=== PATIENT | female | born 1990 | race American Indian/Alaskan Native ===

== ENCOUNTER 2016-09-14 13:33 | Outpatient (CLI) | payer MEDICAID ==
[2016-09-14 15:46] VITALS: BP 110/60
== END 2016-09-14 15:30 | disposition home or self-care (01) ==
LOC: TRG 13:33 → LAB 13:33 → TRG 15:26
PROVIDERS: ATTEND Obstetrics & Gynecology
DX: O36.0130 Maternal care for anti-D [Rh] antibodies, third trimester, not applicable or unspecified (principal); Z3A.29 29 weeks gestation of pregnancy
CPT/HCPCS: 86850; 86900; 86901; 96372; J2790

== ENCOUNTER 2016-10-17 16:05 | Outpatient (CLI) | payer MEDICAID ==
[2016-10-17 16:22] VITALS: BP 122/61
[2016-10-17] MEDS ORDERED: LACTATED RINGERS 500 ML IV ONE (16:24)
[2016-10-17] MEDS ORDERED: TYLENOL PO ONE (17:26)
== END 2016-10-17 18:59 | disposition home or self-care (01) ==
LOC: TRG 16:05 → LD 16:06 → TRG 18:59
PROVIDERS: ATTEND Obstetrics & Gynecology
DX: O47.03 False labor before 37 completed weeks of gestation, third trimester (principal); Z3A.34 34 weeks gestation of pregnancy
CPT/HCPCS: 59025; J7120

== ENCOUNTER 2016-11-06 17:55 | Outpatient (CLI) | payer MEDICAID ==
[2016-11-06 18:07] VITALS: BP 114/56
[2016-11-06] MEDS ORDERED: VISTARIL PO ONE (18:38)
== END 2016-11-06 19:01 | disposition home or self-care (01) ==
LOC: TRG 17:55
PROVIDERS: ATTEND Obstetrics & Gynecology
CPT/HCPCS: Q0177

== ENCOUNTER 2016-11-14 03:26 | Inpatient (IN) | payer MEDICAID ==
[2016-11-14] MEDS ORDERED: MINERAL OIL PO PRN (05:02)
[2016-11-14] MEDS ORDERED: BRETHINE IVP PRN (05:02)
[2016-11-14] MEDS ORDERED: ePHEDrine SULFATE IV PRN ×2 (05:02→08:46)
[2016-11-14] MEDS ORDERED: POLYCILLIN/NS 2 GM/100 ML 2 GM/100 ML BAG IV ONE (05:02)
[2016-11-14] MEDS ORDERED: BRETHINE SUB-Q PRN (05:02)
[2016-11-14] MEDS ORDERED: XYLOCAINE 2% INFILTRATI ONE (05:02)
[2016-11-14] MEDS: LACTATED RINGERS 1,000 ML IV SCH ×2 (05:30→09:30)
[2016-11-14] MEDS ORDERED: SUBLIMAZE IV ONE (05:43)
[2016-11-14] MEDS ORDERED: PITOCin/NS 20 UNIT/1000ML DRIP 20 UNITS/1,000 ML BAG IV SCH (06:00)
[2016-11-14 06:03] LABS: Hematocrit 32.7 % (30.3-42.9); Hemoglobin 10.6 gm/dl (10.1-14.3); Mean Corpuscular HGB Conc 32 % (30-34); Mean Corpuscular Hemoglobin 27 pg (28-32); Mean Corpuscular Volume 83 fl (79-97); Platelet Count 256 K/mm3 (140-440); Red Blood Count 3.93 M/mm3 (3.65-5.03); Red Cell Distribution Width 15.3 % (13.2-15.2); White Blood Count 12.5 K/mm3 (4.5-11.0)
[2016-11-14 06:34] LABS: Urine Drugs of Abuse Note Disclamer
--- NOTE | 2016-11-14 07:33 | History and Physical Report ---
History of Present Illness Date of examination: 11/14/16 Date of admission: 11/14/16 05:03 Chief complaint: I'm having contractions History of present illness: 26 yo , now 38 weeks presents to labor and delivery with C/o contractions. care at [facility] since 13 weeks. 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 GBS + Past History Past Medical History: no pertinent history Past Surgical History: other (cyst removed off vocal cord) [employer] History: abnormal PAP smear, herpes, other (hpv) Family/Genetic History: none - Obstetrical History Expected Date of Delivery: 11/27/16 Actual Gestation: 38 Week(s) 1 Day(s) : 3 Para: 1 Hx # Term Pregnancies: 1 Spontaneous Abortions: 1 Number of Living Children: 1 Medications and Allergies Allergies Allergy/AdvReac Type Severity Reaction Status Date / Time No Known Allergies Allergy Verified 09/14/16 15:30 Home Medications Medication Instructions Recorded Confirmed Last Taken Type No Known Home Medications [No 10/17/16 10/17/16 Unknown History Reported Home Medications] Active Meds: Active Medications Lactated Ringer's (Lactated Ringers) 1,000 mls @ 125 mls/hr IV DIRECT TOBY Last Admin: 11/14/16 05:30 Dose: 125 mls/hr Oxytocin/Sodium Chloride (Pitocin/Ns 20 Unit/1000ml Drip) 20 units in 1,000 mls @ 125 mls/hr IV DIRECT TOBY Ampicillin Sodium (Polycillin/Ns 1 Gm/50 Ml) 1 gm in 50 mls @ 100 mls/hr IV Q4HR TOBY PRN Reason: Protocol Mineral Oil (Mineral Oil) 30 ml PO QHS PRN PRN Reason: Constipation Review of Systems All systems: negative - Vital Signs Vital signs: Vital Signs Pulse BP 95 H 126/71 11/14/16 03:30 11/14/16 03:30 Temp Pulse Resp BP Pulse Ox 98.0 F 91 H 18 160/75 100 11/14/16 03:38 11/14/16 07:03 11/14/16 03:38 11/14/16 07:03 11/14/16 06:58 - Physical Exam Cardiovascular: Regular rate Lungs: Positive: Clear to auscultation Abdomen: Positive: soft Vulva: both: normal Vagina: Positive: normal moisture Uterus: Positive: enlarged Anus/Rectum: Positive: normal perianal skin Extremities: Positive: normal Deep Tendon Reflex Grade: Normal +2 - Obstetrical FHR: category 1 Cervical Dilatation: 8 (arom no fluid) Cervical Effacement Percentage: 100 station: +1 Uterine Contraction Pattern: Regular Uterine Contraction Intensity: Moderate Results Result Diagrams: 11/14/16 05:02 Abnormal lab results 11/14/16 Range/Units 05:02 WBC 12.5 H (4.5-11.0) K/mm3 MCH 27 L (28-32) pg RDW 15.3 H (13.2-15.2) % All other labs normal. Assessment and Plan A: Active labor at 38 weeks P: Expect
[2016-11-14] MEDS ORDERED: PITOCin/NS 30 UNIT/500ML 30 UNITS/500 ML BAG IV SCH (08:00)
[2016-11-14] MEDS ORDERED: ePHEDrine SULFATE ONE (08:12)
--- NOTE | 2016-11-14 08:44 | Anesthesia Consultation ---
Anesthesia Consult and Med Hx Date of service: 11/14/16 - Airway Anesthetic Teeth Evaluation: Good ROM Head & Neck: Adequate Mental/Hyoid Distance: Adequate Mallampati Class: Class II Intubation Access Assessment: Probably Good - Pre-Operative Health Status ASA Pre-Surgery Classification: ASA2 Proposed Anesthetic Plan: Epidural, Spinal - Pulmonary Hx Smoking: Yes (10 years/pack history, quit 2015) Hx Asthma: No - Cardiovascular System Hx Hypertension: No - Central Nervous System Hx Seizures: No Hx Psychiatric Problems: No - Endocrine Hx Renal Disease: No Hx Hypothyroidism: No Hx Hyperthyroidism: No - Hematic Hx Anemia: No Hx Sickle Cell Disease: No - Other Systems Hx Alcohol Use: No
[2016-11-14] MEDS ORDERED: NARCAN 2 MG/2 ML IV PRN (08:46)
[2016-11-14] MEDS ORDERED: fentaNYL-BUPIV 2 MCG/ML-0.125% 200 MCG/100 ML BAG EPIDURAL SCH (09:00)
[2016-11-14] MEDS ORDERED: POLYCILLIN/NS 1 GM/50 ML 1 GM/50 ML BAG IV SCH (09:00)
--- NOTE | 2016-11-14 09:44 | Ultrasound Report ---
BIOPHYSICAL PROFILE: 0 - breathing movements 0 - movements 0 - posture and tone 0 - Qualitative amniotic fluid volume 0 - TOTAL SCORE OF POSSIBLE 8
--- NOTE | 2016-11-14 10:27 | Procedure Note ---
OB Delivery Note - Delivery Date of Delivery: 11/14/16 Surgeon: RADHA SHAW - Vaginal Delivery presentation: vertex Delivery position: OA Intrapartum events: none Delivery induction: none Delivery augmentation: rupture of membranes, pitocin Delivery monitor: external FHT, external uterine Route of delivery: Delivery placenta: spontaneous Delivery cord: 3 umbilical vessels Episiotomy: none Delivery laceration: none Anesthesia: epidural Delivery comments: of a viable male 6# 14 oz on November 14, 2016 @ 1011 over intact perineum. Placenta delivered 3VCI. FF @ U. Mother and baby doing well. - Infant A at 1 minute: 8 at 5 minutes: 9 Gender: Male (6-14)
[2016-11-14] MEDS ORDERED: PHENERGAN PO PRN (10:28)
[2016-11-14] MEDS ORDERED: BENADRYL PO PRN (10:28)
[2016-11-14] MEDS ORDERED: MILK OF MAGNESIA PO PRN (10:28)
[2016-11-14] MEDS ORDERED: DULCOLAX PR PRN (10:28)
[2016-11-14] MEDS ORDERED: LANSINOH TP PRN (10:28)
[2016-11-14] MEDS ORDERED: TYLENOL PO PRN (10:28)
[2016-11-14] MEDS ORDERED: SODIUM CHLORIDE FLUSH SYRINGE 10 ML IV NR (11:00)
[2016-11-14] MEDS: MOTRIN PO SCH ×2 (12:43→18:34)
[2016-11-14] MEDS: NORCO 5/325 PO PRN ×2 (15:41→21:17)
[2016-11-15 00:32] LABS: Hematocrit 29.5 % (30.3-42.9); Hemoglobin 9.7 gm/dl (10.1-14.3)
[2016-11-15] MEDS: NORCO 5/325 PO PRN ×3 (05:04→21:59)
[2016-11-15] MEDS: MOTRIN PO SCH ×3 (05:25→21:59)
[2016-11-15] MEDS ORDERED: M-M-R II VACCINE SUB-Q ONE (06:00)
--- NOTE | 2016-11-15 09:17 | Progress Note ---
Assessment and Plan A: PPD #1 stable P: Discharge home in am Subjective - Subjective Date of service: 11/15/16 Principal diagnosis: Interval history: 26 yo , now 38 weeks presents to labor and delivery with C/o contractions. care at [facility] since 13 weeks. 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 GBS + Patient reports: appetite normal [place]: doing well Objective - Vital Signs Latest vital signs: Vital Signs Temp Pulse Pulse Resp BP BP BP 11/15/16 08:12 98.2 F 81 18 130/74 11/15/16 05:04 16 11/15/16 00:35 97.8 F 91 H 20 145/89 11/14/16 21:17 18 11/14/16 18:34 18 11/14/16 16:56 99.2 F 90 18 116/56 11/14/16 15:41 18 11/14/16 12:43 18 11/14/16 12:00 99.0 F 98 H 18 127/79 11/14/16 11:15 99 H 112/60 11/14/16 11:05 97 H 116/59 11/14/16 10:50 104 H 120/59 11/14/16 10:46 97.5 F L 116/70 11/14/16 10:35 97 H 118/73 11/14/16 10:20 100 H 116/70 11/14/16 09:56 91 H 11/14/16 09:51 91 H 11/14/16 09:46 75 11/14/16 09:41 83 11/14/16 09:36 87 11/14/16 09:31 82 11/14/16 09:26 95 H 11/14/16 09:21 91 H 11/14/16 09:16 95 H Pulse Ox 11/15/16 08:12 11/15/16 05:04 11/15/16 00:35 11/14/16 21:17 11/14/16 18:34 11/14/16 16:56 11/14/16 15:41 11/14/16 12:43 11/14/16 12:00 11/14/16 11:15 11/14/16 11:05 11/14/16 10:50 11/14/16 10:46 11/14/16 10:35 11/14/16 10:20 11/14/16 09:56 100 11/14/16 09:51 100 11/14/16 09:46 99 11/14/16 09:41 100 11/14/16 09:36 99 11/14/16 09:31 100 11/14/16 09:26 100 11/14/16 09:21 100 11/14/16 09:16 100 Intake and Output 11/14/16 11/15/16 11/15/16 22:59 06:59 14:59 Intake Total 720 360 Output Total 600 Balance 120 360 Intake: Oral 480 360 Intake, Free Water 240 Output: Urine 600 Void 600 Other: Total, Intake Amount 240 120 Total, Output Amount 600 # Voids Void 1 1 # Bowel Movements 1 - Exam Breasts: Present: deferred, mass Lungs: Present: Clear to auscultation Vulva: both: normal Uterus: Present: fundal height below umbilicus Extremities: Present: normal Deep Tendon Reflex Grade: Normal +2 - Labs Labs: Abnormal lab results 11/15/16 Range/Units 00:04 Hgb 9.7 L (10.1-14.3) gm/dl Hct 29.5 L (30.3-42.9) %
--- NOTE | 2016-11-15 09:20 | Discharge Summary ---
Providers - Providers Date of Admission: 11/14/16 05:03 Date of discharge: 11/16/16 Attending physician: RUBI GALLARDO MD 11/14/16 10:44 Consult to Case Management [CONS] Stat Services Needed at Discharge: Other Notified:: YES Phone number called:: [phone] Additional Physician Instructions: UDS + FOR COCAINE Primary care physician: RUBI GALLAROD MD Hospitalization Reason for admission: active labor Delivery: Episiotomy: none Laceration: none Other procedures: none complications: none Discharge diagnosis: IUP at term delivered baby: male Condition at discharge: Good Disposition: DISCHARGED TO HOME OR SELFCARE Plan - Provider Discharge Summary Activity: routine, no sex for 6 weeks, no strenuous exercise Diet: routine Instructions: routine Additional instructions: [] Smoking cessation referral if applicable(refer to patient education folder for contact #) [] Refer to [facility]'s [facility] Booklet Call your doctor immediately for: * Fever > 100.5 * Heavy vaginal bleeding ( >1 pad per hour) * Severe persistent headache * Shortness of breath * Reddened, hot, painful area to leg or breast * Drainage or odor from incision. * Keep incision clean and dry at all times and follow doctor's instructions regarding bathing/showering - Follow up plan Follow up: [facility] [Provider Group] - 6 Weeks
[2016-11-16] MEDS: MOTRIN PO SCH (06:01)
[2016-11-16] MEDS: NORCO 5/325 PO PRN (11:21)
[2016-11-16] MEDS ORDERED: M-M-R II VACCINE SUB-Q ONE (12:00)
[2016-11-16 12:36] VITALS: BP 122/76
== END 2016-11-16 14:50 | disposition home or self-care (01) | DRG 774 ==
LOC: TRG 03:26 → LD 05:03 → OB 12:06
PROVIDERS: ADMIT Obstetrics & Gynecology; ATTEND Obstetrics & Gynecology
PROC: 00HU33Z Insertion of Infusion Device into Spinal Canal, Percutaneous Approach (ICD-10-PCS; principal; 2016-11-14)
PROC: 3E0S3CZ (ICD-10-PCS; principal; 2016-11-14)
PROC: 10E0XZZ Delivery of Products of Conception, External Approach (ICD-10-PCS; principal; 2016-11-14)
PROC: 3E0334Z Introduction of Serum, Toxoid and Vaccine into Peripheral Vein, Percutaneous Approach (ICD-10-PCS; 2016-11-15)
PROC: 10907ZC Drainage of Amniotic Fluid, Therapeutic from Products of Conception, Via Natural or Artificial Opening (ICD-10-PCS; 2016-11-15)
DX: O99.824 Streptococcus B carrier state complicating childbirth (principal); O98.32 Other infections with a predominantly sexual mode of transmission complicating childbirth; Z3A.38 38 weeks gestation of pregnancy; Z37.0 Single live birth; A60.09 Herpesviral infection of other urogenital tract; Z87.891 Personal history of nicotine dependence; Z79.899 Other long term (current) drug therapy
CPT/HCPCS: 36415; 76819; 80307; 85014; 85018; 85027; 85460; 85461; 86850; 86900; 86901; J0290; J2590; J2790; J3010; J7120

== ENCOUNTER 2021-01-04 19:34 | Emergency (ER) | payer MEDICAID ==
[2021-01-04 23:10] VITALS: BP 112/82
--- NOTE | 2021-01-05 05:46 | Event Note ---
ED Screening Note Date of service: 01/05/21 Time: 05:44 ED Screening Note: Patient is a 30-year-old -Japanese female with a history of schizophrenia, anxiety and depression as well as bipolar disorder presents to the ED with complaint of persistent auditory and visual hallucinations persi stently for the last 2 weeks, worse in the last 2 days. Patient also states that occasionally she feels suicidal but currently denies the same. Patient also complains of dysuria, urinary frequency and urgency, vaginal discharge and states that she would like to be evaluated by mental health because of her worsening hallucination conditions. Patient denies fever, chills, nausea, vomiting, dizziness, syncope, head or neck injuries, chest pain or shortness of breath and abdominal pain This initial assessment/diagnostic orders/clinical plan/treatment(s) is/are subject to change based on patients health status, clinical progression and re- assessment by fellow clinical providers in the ED. Further treatment and workup at subsequent clinical providers discretion. Patient/guardian urged not to elope from the ED as their condition may be serious if not clinically assessed and managed. Initial orders include: CBC, CMP, UA, urine hCG, UDS, blood alcohol, acetaminophen, salicylate, TSH
[2021-01-05 06:13] LABS: Bacteria,Urine 1+ /HPF (Negative); Bilirubin,Urine NEG (Negative); Blood,Urine NEG (Negative); Color,Urine Yellow (Yellow); Mucus,Urine 3+ /HPF
[2021-01-05 06:17] LABS: HCG Qualitative,Urine Negative (Negative)
[2021-01-05 06:21] LABS: Basophils % (Auto) 0.5 % (0.0-1.8); Eosinophils # (Auto) 0.3 K/mm3 (0.0-0.4); Eosinophils % (Auto) 3.5 % (0.0-4.3); Hematocrit 37.1 % (30.3-42.9); Hemoglobin 12.2 gm/dl (10.1-14.3); Lymphocytes # (Auto) 2.5 K/mm3 (1.2-5.4); Lymphocytes % (Auto) 26.7 % (13.4-35.0); Mean Corpuscular HGB Conc 33 % (30-34); Mean Corpuscular Volume 88 fl (79-97); Monocytes # (Auto) 0.7 K/mm3 (0.0-0.8); Monocytes % (Auto) 7.1 % (0.0-7.3); Platelet Count 305 K/mm3 (140-440); Red Blood Count 4.22 M/mm3 (3.65-5.03)
[2021-01-05 06:22] LABS: Amphetamine Screen,Urine PRESUMPTIVE POSITIVE; Benzodiazepines Screen,Urine PRESUMPTIVE NEGATIVE; Cannabinoid Screen,Urine PRESUMPTIVE POSITIVE; Cocaine Screen,Urine PRESUMPTIVE POSITIVE; Methadone Screen,Urine PRESUMPTIVE NEGATIVE; Opiate Screen,Urine PRESUMPTIVE NEGATIVE
[2021-01-05 06:41] LABS: Alanine Aminotransferase 15 units/L (7-56); Albumin 4.1 g/dL (3.9-5); Blood Urea Nitrogen 14 mg/dL (7-17); Hemolysis Index 6
[2021-01-05 06:42] LABS: BUN/Creatinine Ratio 23
--- NOTE | 2021-01-05 07:01 | Emergency Department Report ---
<MAYUR WASHINGTON - Last Filed: 01/05/21 06:56> ED Medical Clearance HPI - General Chief complaint: Urogenital-Female Stated complaint: MH EVAL/HEARING VOICES Source: patient, EMS Mode of arrival: Stretcher - History of Present Illness Initial comments: Patient is a 30-year-old -Marshallese female with a history of schizophrenia, anxiety and depression as well as bipolar disorder presents to the ED with complaint of persistent auditory and visual hallucinations persistently for the last 2 weeks, worse in the last 2 days. Patient also states that occasionally she feels suicidal but currently denies the same. Patient also complains of dysuria, urinary frequency and urgency, vaginal discharge and states that she would like to be evaluated by mental health because of her worsening hallucination conditions. Patient denies fever, chills, nausea, vomiting, dizziness, syncope, head or neck injuries, chest pain or shortness of breath and abdominal pain. MD Complaint: medical clearance request -: Sudden, week(s) (1) Reason for Medical Clearance: psychiatric condition Place: home Alledged Intoxication: No Compliant with Home Medications: No Traumatic Symptoms: denies traumatic injury Associated Symptoms: denies: chest pain, shortness of breath, palpitations, diaphoresis, denies other symptoms, confusion, cough, fever/chills, headaches, anorexia, malaise, nausea/vomiting, seizure, syncope, weakness Treatments Prior to Arrival: none Home medications: Home Medications Medication Instructions Recorded Confirmed Last Taken Acetaminophen/Diphenhydramine 2 each PO QHS 11/14/16 11/14/16 11/13/16 [Tylenol Pm Ex-Strength Caplet] Vit No.130/Iron/Folic 1 each PO QDAY 11/14/16 11/14/16 11/13/16 [ Tablet] 1 tab Previous Rx's Medication Instructions Recorded Last Taken Type Sulfamethoxazole/Trimethoprim 1 tab PO BID #14 01/05/21 Unknown Rx [Bactrim DS TAB] metroNIDAZOLE [Flagyl] 500 mg PO Q12HR #14 tab 01/05/21 Unknown Rx Allergies/Adverse reactions: Allergies Allergy/AdvReac Type Severity Reaction Status Date / Time No Known Allergies Allergy Verified 09/14/16 15:30 ED Review of Systems Constitutional: denies: chills, fever Eyes: denies: eye pain, eye discharge, vision change ENT: denies: ear pain, throat pain Respiratory: denies: cough, shortness of breath, wheezing Cardiovascular: denies: chest pain, palpitations Endocrine: no symptoms reported Gastrointestinal: denies: abdominal pain, nausea, vomiting, diarrhea Genitourinary: urgency, dysuria, frequency, discharge Musculoskeletal: denies: back pain, joint swelling, arthralgia Skin: denies: rash, lesions Neurological: denies: headache, weakness, paresthesias Psychiatric: anxiety, depression, auditory hallucinations, visual hallucinations. denies: homicidal thoughts, suicidal thoughts Hematological/Lymphatic: denies: easy bleeding, easy bruising ED Past Medical Hx - Past Medical History Hx Hypertension: No Hx Diabetes: No Hx Deep Vein Thrombosis: No Hx Renal Disease: No Hx Sickle Cell Disease: No Hx Seizures: No Hx Psychiatric Treatment: Yes (Anxiety, depression, schizophrenia, bipolar disorder) Hx Asthma: No Hx HIV: No - Social History Smoking Status: Never Smoker Substance Use Type: None - Medications Home Medications: Home Medications Medication Instructions Recorded Confirmed Last Taken Type Acetaminophen/Diphenhydramine 2 each PO QHS 11/14/16 11/14/16 11/13/16 History [Tylenol Pm Ex-Strength Caplet] Vit No.130/Iron/Folic 1 each PO QDAY 11/14/16 11/14/16 11/13/16 History [ Tablet] 1 tab Sulfamethoxazole/Trimethoprim 1 tab PO BID #14 01/05/21 Unknown Rx [Bactrim DS TAB] metroNIDAZOLE [Flagyl] 500 mg PO Q12HR #14 tab 01/05/21 Unknown Rx ED Physical Exam - General Limitations: No Limitations General appearance: alert, in no apparent distress, anxious - Head Head exam: Present: atraumatic, normocephalic, normal inspection - Eye Eye exam: Present: normal appearance, PERRL, EOMI Pupils: Present: normal accommodation - ENT ENT exam: Present: normal exam, normal orophraynx, mucous membranes moist, TM's normal bilaterally, normal external ear exam - Neck Neck exam: Present: normal inspection, full ROM - Respiratory Respiratory exam: Present: normal lung sounds bilaterally. Absent: respiratory distress, wheezes, rales, rhonchi, chest wall tenderness, accessory muscle use, decreased breath sounds, prolonged expiratory - Cardiovascular Cardiovascular Exam: Present: normal rhythm, tachycardia, normal heart sounds. Absent: systolic murmur, diastolic murmur, rubs, gallop - GI/Abdominal GI/Abdominal exam: Present: soft, normal bowel sounds. Absent: tenderness, guarding, rebound, hyperactive bowel sounds, hypoactive bowel sounds, organomegaly, mass - Bi-manual exam: Present: other (Pelvic exam deferred at this time) - Extremities Exam Extremities exam: Present: normal inspection, full ROM, normal capillary refill - Back Exam Back exam: Present: normal inspection, full ROM. Absent: tenderness, CVA tenderness (R), muscle spasm, paraspinal tenderness, vertebral tenderness - Neurological Exam Neurological exam: Present: alert, oriented X3, CN II-XII intact, normal gait, reflexes normal - Psychiatric Psychiatric exam: Present: normal mood, depressed, anxious, flat affect. Absent: homicidal ideation, suicidal ideation - Skin Skin exam: Present: warm, dry, intact, normal color. Absent: rash ED Medical Decision Making - Lab Data Result diagrams: 01/05/21 05:50 01/05/21 05:50 - Medical Decision Making This is a 30-year-old -Marshallese female with a history of schizophrenia, anxiety and depression as well as bipolar disorder presents to the ED with complaint of persistent auditory and visual hallucinations persistently for the last 2 weeks, worse in the last 2 days. Patient also states that occasionally she feels suicidal but currently denies the same. Patient also complains of dysuria, urinary frequency and urgency, vaginal discharge and states that she would like to be evaluated by mental health because of her worsening hallucination conditions. In the ED, patient is alert and oriented x3 and is not in any distress, anxious and with flat affect. Lab test results were reviewed and showed urinary tract infection in urinalysis, urine drug screen was positive for amphetamines, cocaine and and cannabis. The rest of the lab test results are nonactionable. Psychiatric consult was placed for the patient in the ED. Patient care was transferred to Ms. Padmini Gutierrez PA-C at shift change. She shall reevaluate the patient after psychiatric consult and disposition the patient accordingly. - Differential Diagnosis Bipolar disorder, anxiety and depression, UTI; BV; hallucination ED Disposition Clinical Impression: Acute urinary tract infection, Anxiety associated with depression, Polysubstance abuse, Bacterial vaginosis Disposition: - TO HOME OR SELFCARE Is pt being admited?: No Does the pt Need Aspirin: No Condition: Stable Instructions: Generalized Anxiety Disorder, Adult, Substance Use Disorder and Mental Illness, Substance Use Disorder, Urinary Tract Infection, Adult, [id number], Bacterial Vaginosis, [id number], Bacterial Vaginosis (ED) Additional Instructions: Lab test results were reviewed and are all nonactionable except for urinalysis that showed significant urinary tract infection and suspected bacterial vaginosis. Your urine drug screen also showed significant illegal drugs including cocaine, amphetamines and marijuana. Professional and Agency Contacts To help Resolve Crises(03/01) [place] Crisis Line: Suicide Prevention Line: Crisis Text Line: Text START to 103838 Emergency: 911 Outpatient COMMUNITY Behavioral Health Resources: [facility]: [facility] [address] [place], [place] [address] [facility] [address] [place] [address] [facility] - [address] [place] [address] Tuesday thru Tuesday - 8am - 5pm [facility] Address: [address] [place] [address] [facility]: [facility] Address: [address] [place] [address] Tuesday thru Tuesday- 7am-2pm [facility] Address: [address] [place] [address] Tuesday thru Tuesday: 8:30AM-5PM OUTPATIENT MENTAL HEALTH RESOURCES [facility], [address] [place] [address] DEMETRIO Arzate MD: [address] [place], [place] [id number] [facility]: [address] [place], [place] [id number] [employer] [address] [place], [place] [id number] [phone] [facility]: [address] [facility] [address] [place] [address] [phone] [facility]: [address] [place] [id number] [facility]: [address] [place], [place] Hermilo Thomas MD: [address] [facility] [address] [facility]: [address] [facility] [place] [address] [phone] [place] CRISIS AND ACCESS LINE: * Prescriptions: Sulfamethoxazole/Trimethoprim [Bactrim DS TAB] 1 tab PO BID #14 metroNIDAZOLE [Flagyl] 500 mg PO Q12HR #14 tab Referrals: PRIMARY CARE, [Primary Care Provider] - 3-5 Days Forms: STI Treatment and Prevention Time of Disposition: 07:05 Print Language: SYRIAC <PADMINI GUTIERREZ - Last Filed: 01/05/21 13:21> ED Review of Systems ROS: Stated complaint: MH EVAL/HEARING VOICES Other details as noted in HPI ED Course Vital Signs 01/04/21 23:04 Temperature 98.3 F Pulse Rate 101 H Respiratory 18 Rate Blood Pressure 112/82 O2 Sat by Pulse 96 Oximetry ED Medical Decision Making - Lab Data Result diagrams: 01/05/21 05:50 01/05/21 05:50 - Medical Decision Making 1318: Patient was evaluated by psych. She does not meet criteria for inpatient treatment and was cleared to be discharged. Patient currently resting comfortably. She has no complaints currently. She is not toxic or ill- appearing and she does not appear to be in any acute severe distress. She is mentally stable and neurologically intact with a normal gait in the ER. Patient was written for doxycycline for her UTI but she states she is allergic to it and so she will be discharged home on Bactrim. Patient was stable at time of discharge.
--- NOTE | 2021-01-05 11:34 | Consultation ---
History of Present Illness - Reason for Consult Consult date: 01/05/21 Reason for consult: Hallucinations - History of Present Psychiatric Illness Per ED Note: Patient is a 30-year-old -Ira[place] female with a history of schizophrenia, anxiety and depression as well as bipolar disorder presents to the ED with complaint of persistent auditory and visual hallucinations persistently for the last 2 weeks, worse in the last 2 days. Patient also states that occasionally she feels suicidal but currently denies the same. Jennifer ent also complains of dysuria, urinary frequency and urgency, vaginal discharge and states that she would like to be evaluated by mental health because of her worsening hallucination conditions. Patient denies fever, chills, nausea, vomiting, dizziness, syncope, head or neck injuries, chest pain or shortness of breath and abdominal pain Viola Bond is a 30 year old female with a history of Depression, Schizophrenia, Bipolar and Anxiety who presents to the ED with auditory/visual hallucinations. In my interview with the patient, she reports having worsening depression and auditory/visual hallucinations since the last two weeks. She reports smoking marijuana yesterday that intensified her hallucinations "that scared me, I was seeing demons." The patient states she was prescribed Zoloft and Remeron and has been compliant. The patient denies any current suicidal/homicidal ideation. Diagnoses: Depression, Schizophrenia and Anxiety Suicide attempts or Self-harm behavior: Denies Prior psychiatric hospitalizations: Yes Substance Abuse history: Marijuana Previous psychiatric medications tried: Zoloft, Remeron Outpatient treatment: unknown PAST MEDICAL HISTORY: unknown Family Psychiatric History: None reported or documented SOCIAL HISTORY Marital Status: Single Living Arrangements: Lives with mother Employment Status: unemployed Access to guns/weapons: Denies Education: 12th grade History of Abuse: none reported Legal History: none reported REVIEW OF SYSTEMS Constitutional: Negative for weight loss ENT: Negative for stridor Respiratory: Negative for cough or hemoptysis All other systems reviewed and are negative MENTAL STATUS EXAMINATION General Appearance and Behavior: Age appropriate, good hygiene, wearing appropriate clothes, sleeping, cooperative Cooperation: Participating/engaged Psychomotor Behavior: Normal Mood: OK Affect and affective range: congruent with mood Thought Process: Self directed Thought Content: Not SI Speech: Normal volume Suicidal Ideation: Denies Homicidal Ideation: Denies Hallucinations: Auditory Delusions: None elicited Impulse Control: impaired Insight and Judgment: Limited insight and judgment, Memory: Normal Attention: Normal Orientation: Alert, oriented Assessment and Plan (1)Schizophrenia F20.9 Current Visit: Yes Status: Acute Treatment Plan The patient to comply with previously prescribed medications Risks, benefits and alternatives of medications discussed with the patient, questions answered and consent obtained from patient. PSYCHOTHERAPY: Supportive psychotherapy provided MEDICAL: Per primary team DELIRIUM PRECAUTIONS: Please re-orient patient frequently, keep lights on during the day, and minimize benzodiazepines and opiates as these medications could worsen patient's confusion. 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 FOLLOW-UP: Will sign off. The patient knows to follow up with out patient psychiatry. Thank you for the consult. Please contact with any questions and/or concerns. Medications and Allergies Medications and Allergies Allergies Allergy/AdvReac Type Severity Reaction Status Date / Time No Known Allergies Allergy Verified 09/14/16 15:30 Home Medications Medication Instructions Recorded Confirmed Last Taken Type Acetaminophen/Diphenhydramine 2 each PO QHS 11/14/16 11/14/16 11/13/16 History [Tylenol Pm Ex-Strength Caplet] Vit No.130/Iron/Folic 1 each PO QDAY 11/14/16 11/14/16 11/13/16 History [ Tablet] 1 tab Sulfamethoxazole/Trimethoprim 1 tab PO BID 11/14/16 11/14/16 11/13/16 History [Bactrim DS TAB] 1 tab Doxycycline Hyclate 100 mg PO Q12H #28 tablet. 01/05/21 Unknown Rx metroNIDAZOLE [Flagyl] 500 mg PO Q12HR #14 tab 01/05/21 Unknown Rx Mental Status Exam - Vital signs Last Vital Signs Temp 98.3 F 01/04/21 23:04 Pulse 101 H 01/04/21 23:04 Resp 18 01/04/21 23:04 BP 112/82 01/04/21 23:04 Pulse Ox 96 01/04/21 23:04 Results Result Diagrams: 01/05/21 05:50 01/05/21 05:50 Abnormal lab results 01/05/21 01/05/21 01/05/21 Range/Units 05:46 05:50 05:50 RDW 16.0 H (13.2-15.2) % Glucose 115 H (65-100) mg/dL Ur Specific [employer] 1.039 H (1.003-1.030) U Epithel Cells (Auto) 16.0 H (0-13.0) /HPF Salicylates (2.8-20.0) mg/dL Acetaminophen (10.0-30.0) ug/mL 01/05/21 01/05/21 Range/Units 05:50 05:50 RDW (13.2-15.2) % Glucose (65-100) mg/dL Ur Specific [employer] (1.003-1.030) U Epithel Cells (Auto) (0-13.0) /HPF Salicylates < 0.3 L (2.8-20.0) mg/dL Acetaminophen 5.0 L (10.0-30.0) ug/mL All other labs normal.
== END 2021-01-05 13:23 | disposition home or self-care (01) ==
LOC: ED 19:34
DX: F20.9 Schizophrenia, unspecified (principal); F41.8 Other specified anxiety disorders; N39.0 Urinary tract infection, site not specified; F19.10 Other psychoactive substance abuse, uncomplicated; N76.0 Acute vaginitis; F31.9 Bipolar disorder, unspecified
CPT/HCPCS: 36415; 80053; 80307; 80320; 81001; 81025; 84443; 84703; 85025; 99284; G0480

== ENCOUNTER 2021-04-27 04:15 | Emergency (ER) | payer MEDICAID ==
[2021-04-27 04:25] VITALS: BP 163/85
--- NOTE | 2021-04-27 04:29 | Event Note ---
Date: 04/27/21 EMS documentation not available at time of chart dictation Verbal report received from emergency medical services. Patient is a 30-year-old female with a history of psychiatric disease and body mass index of 35.7, who presents to the ER today with complaint of epigastric pain, and chest tightness. The patient denies travel, surgery, immobilization DVT/PE risk factors. The patient is not sure if she is . EKG showed a sinus tachycardia. Obtain appropriate laboratory studies, EKG, x-ray the chest, detailed history and physical to follow. Vital Signs 04/27/21 04/27/21 04:24 04:34 Temperature 98.9 F Pulse Rate 130 H 126 H Respiratory 20 Rate Blood Pressure 163/85 [Left] O2 Sat by Pulse 99 Oximetry
[2021-04-27 05:22] LABS: INR 0.88 (0.87-1.13)
[2021-04-27 05:23] LABS: Basophils # (Auto) 0.1 K/mm3 (0.0-0.1); Basophils % (Auto) 0.5 % (0.0-1.8); Eosinophils % (Auto) 0.2 % (0.0-4.3); Hemoglobin 11.1 gm/dl (10.1-14.3); Lymphocytes # (Auto) 3.2 K/mm3 (1.2-5.4); Lymphocytes % (Auto) 25.2 % (13.4-35.0); Mean Corpuscular HGB Conc 33 % (30-34); Mean Corpuscular Volume 86 fl (79-97); Monocytes # (Auto) 0.7 K/mm3 (0.0-0.8); Monocytes % (Auto) 5.6 % (0.0-7.3); Platelet Count 297 K/mm3 (140-440); Red Blood Count 3.96 M/mm3 (3.65-5.03); Red Cell Distribution Width 14.9 % (13.2-15.2)
[2021-04-27 05:33] LABS: BUN/Creatinine Ratio 16; Blood Urea Nitrogen 11 mg/dL (7-17); Calcium 9.2 mg/dL (8.4-10.2); Hemolysis Index 14
--- NOTE | 2021-04-27 07:42 | Emergency Department Report ---
ED General Adult HPI - General Chief complaint: Arrhythmia/Palpitations Stated complaint: CHEST TIGHTNESS Time Seen by Provider: 04/27/21 06:30 Source: EMS Mode of arrival: Stretcher Limitations: No Limitations - History of Present Illness Initial comments: Patient is 30 years old female with history of schizophrenia. Patient presented to the ER complaining of palpitation, cough for the last 2 weeks. Patient described her cough as productive with greenish sputum. She denied any shortness of breath, fever or chills. Patient stated that she used cocaine probably 5 days ago. Patient denied any abdominal pain, nausea or vomiting. Patient is asking for something to eat. Severity scale (0 -10): 0 - Related Data Home Medications Medication Instructions Recorded Confirmed Last Taken Acetaminophen/Diphenhydramine 2 each PO QHS 11/14/16 11/14/16 11/13/16 [Tylenol Pm Ex-Strength Caplet] Vit No.130/Iron/Folic 1 each PO QDAY 11/14/16 11/14/16 11/13/16 [ Tablet] 1 tab Previous Rx's Medication Instructions Recorded Last Taken Type Sulfamethoxazole/Trimethoprim 1 tab PO BID #14 01/05/21 Unknown Rx [Bactrim DS TAB] metroNIDAZOLE [Flagyl] 500 mg PO Q12HR #14 tab 01/05/21 Unknown Rx Allergies Allergy/AdvReac Type Severity Reaction Status Date / Time No Known Allergies Allergy Verified 09/14/16 15:30 ED Review of Systems ROS: Stated complaint: CHEST TIGHTNESS Other details as noted in HPI Comment: All other systems reviewed and negative Constitutional: denies: chills, fever Respiratory: cough. denies: shortness of breath, SOB with exertion, SOB at rest, wheezing Cardiovascular: chest pain, palpitations Gastrointestinal: denies: abdominal pain, nausea, vomiting, diarrhea, constipation, hematemesis, melena, hematochezia Musculoskeletal: denies: back pain Neurological: denies: headache, weakness, numbness, paresthesias, confusion, abnormal gait ED Past Medical Hx - Past Medical History Hx Hypertension: No Hx Diabetes: No Hx Deep Vein Thrombosis: No Hx Renal Disease: No Hx Sickle Cell Disease: No Hx Seizures: No Hx Psychiatric Treatment: Yes (Anxiety, depression, schizophrenia, bipolar disorder) Hx Asthma: No Hx HIV: No - Surgical History Past Surgical History?: No - Social History Smoking Status: Never Smoker Substance Use Type: None - Medications Home Medications: Home Medications Medication Instructions Recorded Confirmed Last Taken Type Acetaminophen/Diphenhydramine 2 each PO QHS 11/14/16 11/14/16 11/13/16 History [Tylenol Pm Ex-Strength Caplet] Vit No.130/Iron/Folic 1 each PO QDAY 11/14/16 11/14/16 11/13/16 History [ Tablet] 1 tab Sulfamethoxazole/Trimethoprim 1 tab PO BID #14 01/05/21 Unknown Rx [Bactrim DS TAB] metroNIDAZOLE [Flagyl] 500 mg PO Q12HR #14 tab 01/05/21 Unknown Rx ED Physical Exam - General Limitations: No Limitations General appearance: alert, in no apparent distress - Head Head exam: Present: atraumatic, normocephalic, normal inspection - Eye Eye exam: Present: normal appearance, PERRL - ENT ENT exam: Present: normal exam, normal orophraynx, mucous membranes moist - Neck Neck exam: Present: normal inspection, full ROM. Absent: tenderness, meningismus - Respiratory Respiratory exam: Present: normal lung sounds bilaterally - Cardiovascular Cardiovascular Exam: Present: tachycardia - GI/Abdominal GI/Abdominal exam: Present: soft, normal bowel sounds. Absent: distended, te nderness, guarding, rebound, rigid, organomegaly, mass, bruit, pulsatile mass, hernia - Extremities Exam Extremities exam: Present: normal inspection, full ROM, normal capillary refill. Absent: tenderness, pedal edema, joint swelling, calf tenderness - Back Exam Back exam: Present: normal inspection, full ROM. Absent: CVA tenderness (R), CVA tenderness (L) - Neurological Exam Neurological exam: Present: alert, oriented X3, CN II-XII intact, normal gait, reflexes normal. Absent: motor sensory deficit - Psychiatric Psychiatric exam: Present: normal mood. Absent: homicidal ideation, suicidal ideation - Skin Skin exam: Present: warm, intact, normal color ED Course Vital Signs 04/27/21 04/27/21 04:24 04:34 Temperature 98.9 F Pulse Rate 130 H 126 H Respiratory 20 Rate Blood Pressure 163/85 [Left] O2 Sat by Pulse 99 Oximetry ED Medical Decision Making - Lab Data Result diagrams: 04/27/21 04:40 04/27/21 04:40 - EKG Data -: EKG Interpreted by Me EKG shows normal: sinus rhythm Rate: tachycardia - EKG Data Interpretation: no acute changes - Medical Decision Making Patient is 30 years old female with history of schizophrenia. Patient presented to the ER complaining of palpitation, cough for the last 2 weeks. Patient described her cough as productive with greenish sputum. She denied any becky rtness of breath, fever or chills. Patient stated that she used cocaine probably 5 days ago. Patient denied any abdominal pain, nausea or vomiting. Patient is asking for something to eat. Patient remained stable in the ER with stable vital sign. Labs reviewed and showed slight elevated CK. UDS is positive for cocaine and methamphetamine. Patient now is alert, oriented x3 in no acute distress. Patient denied any suicidal homicidal ideation. No auditory or visual hallucination. Critical care attestation.: If time is entered above; I have spent that time in minutes in the direct care of this critically ill patient, excluding procedure time. ED Disposition Clinical Impression: Acute bronchitis, Malignant hypertension, Polysubstance abuse Disposition: 01 HOME / SELF CARE / HOMELESS Is pt being admited?: No Condition: Stable Instructions: Acute Bronchitis (ED), Hypertension (ED), Substance Use Disorder and Mental Illness, Hypertension, Adult, Acute Bronchitis, Adult Referrals: PRIMARY CARE, [Primary Care Provider] - 3-5 Days
--- NOTE | 2021-04-27 08:06 | XRay Report ---
CHEST 2 VIEWS INDICATION: Chest pain for 2 weeks. COMPARISON: None FINDINGS: Support devices: None. Heart: Within normal limits. Lungs/pleura: No acute air space or interstitial disease. No pleural effusion or pneumothorax. Additional findings: None. IMPRESSION: Unremarkable chest films. Signer Name: Gerry Palacios Jr, MD Signed: 04/27/2021 8:02 AM Workstation Name: [id number]
--- NOTE | 2021-04-27 10:26 | Electrocardiograph Report ---
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
[2021-04-27 10:56] LABS: Bacteria,Urine 1+ /HPF (Negative); Bilirubin,Urine NEG (Negative); Blood,Urine NEG (Negative); Color,Urine Yellow (Yellow); Mucus,Urine 1+ /HPF; Urobilinogen,Urine < 2.0 mg/dL (<2.0)
[2021-04-27 10:59] LABS: Benzodiazepines Screen,Urine Negative; Methadone Screen,Urine Negative; Opiate Screen,Urine Negative
[2021-04-27 11:10] LABS: Amphetamine Screen,Urine Positive; Cannabinoid Screen,Urine Positive; Cocaine Screen,Urine Positive
== END 2021-04-27 11:51 | disposition home or self-care (01) ==
LOC: ED 04:15
DX: J20.9 Acute bronchitis, unspecified (principal); I10 Essential (primary) hypertension; F19.10 Other psychoactive substance abuse, uncomplicated; F41.9 Anxiety disorder, unspecified; F20.9 Schizophrenia, unspecified; F31.9 Bipolar disorder, unspecified
CPT/HCPCS: 36415; 71046; 80048; 80307; 80320; 81001; 82550; 83735; 84484; 84703; 85025; 85610; 93005; 99284; G0480

== ENCOUNTER 2021-05-04 02:25 | Emergency (ER) | payer MEDICAID ==
[2021-05-04 02:32] VITALS: BP 142/86
[2021-05-04] MEDS ORDERED: ONDANSETRON 4 MG/2 ML INJ IV ONE (03:00)
[2021-05-04] MEDS ORDERED: LIDOCAINE VISCOUS 2% 15 ML ORAL LIQD PO ONE (03:00)
[2021-05-04] MEDS ORDERED: dexAMETHasone 20 MG/5 ML VIAL IV ONE (03:00)
[2021-05-04] MEDS ORDERED: KETOROLAC 30 MG/1 ML INJ IV ONE (03:00)
[2021-05-04] MEDS ORDERED: SODIUM CHLORIDE 0.9% 1000 ML 1,000 ML IV ONE (03:00)
[2021-05-04 04:16] LABS: Basophils % (Auto) 0.3 % (0.0-1.8); Hematocrit 35.5 % (30.3-42.9); Hemoglobin 11.6 gm/dl (10.1-14.3); Lymphocytes # (Auto) 1.2 K/mm3 (1.2-5.4); Lymphocytes % (Auto) 15.3 % (13.4-35.0); Mean Corpuscular HGB Conc 33 % (30-34); Mean Corpuscular Volume 87 fl (79-97); Monocytes # (Auto) 0.1 K/mm3 (0.0-0.8); Monocytes % (Auto) 1.4 % (0.0-7.3); Platelet Count 321 K/mm3 (140-440); Red Blood Count 4.09 M/mm3 (3.65-5.03); Red Cell Distribution Width 14.7 % (13.2-15.2)
[2021-05-04 04:39] LABS: Alanine Aminotransferase 16 units/L (7-56); Albumin 4.6 g/dL (3.9-5); Blood Urea Nitrogen 12 mg/dL (7-17); Calcium 10.1 mg/dL (8.4-10.2); Hemolysis Index 2
[2021-05-04 04:40] LABS: BUN/Creatinine Ratio 20
[2021-05-04 05:03] LABS: HCG Qualitative,Urine Negative (Negative)
--- NOTE | 2021-05-04 05:30 | XRay Report ---
XR chest routine 2V INDICATION / CLINICAL INFORMATION: COUGH, SORE THROAT. COMPARISON: 04/27/2021 FINDINGS: SUPPORT DEVICES: None. HEART /PULMONARY VASCULATURE: No significant abnormality. LUNGS / PLEURA: No significant pulmonary or pleural abnormality. No pneumothorax. ADDITIONAL FINDINGS: No significant additional findings. IMPRESSION: 1. No acute findings. Signer Name: Billy Kim MD Signed: 05/04/2021 5:26 AM Workstation Name: [id number]
--- NOTE | 2021-05-04 05:45 | Emergency Department Report ---
ED N/V/D HPI - General Chief complaint: Nausea/Vomiting/Diarrhea Stated complaint: DIARRHEA/ SHORTNESS OF BREATH Source: EMS Mode of arrival: Ambulatory Limitations: No Limitations - History of Present Illness Initial comments: Patient is 30-year-old -Niuean female with a history of anxiety, depression, schizophrenia, and bipolar disorder presents to the ED with compla int of persistent nasal and sinus congestion, persistent dry cough with wheezing and shortness of breath, severe sore throat with dysphagia and nausea and vomiting for the last 1 week. Patient states that she was initially evaluated by another hospital and discharged home on azithromycin, Medrol Dosepak, pain medications and cough medications but states that her symptoms have worsened, and nausea and vomiting is also worsened and now she is unable to swallow because of worsening sore throat. Patient denies dizziness, syncope, fever, chills, diarrhea, abdominal pain, chest pain or shortness of breath or back pain. MD complaint: nausea, vomiting, other (Sore throat, dysphagia, persistent dry cough) -: Sudden, week(s) (1) Description of Vomiting: food contents, watery Associated Abdominal Pain: No Location: diffuse Radiation: none Severity: moderate Pain Scale: 7 Quality: cramping, dull Consistency: constant Improves with: none Worsens with: none Associated Symptoms: denies other symptoms, myalgias, cough, headaches, loss of appetite, malaise, nausea/vomiting. denies: chest pain, diaphoresis, fever/chills, rash, dysuria, shortness of breath, syncope, weakness - Related Data Home Medications Medication Instructions Recorded Confirmed Last Taken Acetaminophen/Diphenhydramine 2 each PO QHS 11/14/16 11/14/16 11/13/16 [Tylenol Pm Ex-Strength Caplet] Vit No.130/Iron/Folic 1 each PO QDAY 11/14/16 11/14/16 11/13/16 [ Tablet] 1 tab Previous Rx's Medication Instructions Recorded Last Taken Type Sulfamethoxazole/Trimethoprim 1 tab PO BID #14 01/05/21 Unknown Rx [Bactrim DS TAB] metroNIDAZOLE [Flagyl] 500 mg PO Q12HR #14 tab 01/05/21 Unknown Rx Amoxicillin [Amoxicillin TAB] 875 mg PO BID #14 tablet 04/27/21 Unknown Rx amLODIPine [Norvasc] 5 mg PO DAILY #30 tab 04/27/21 Unknown Rx Ibuprofen [Motrin] 800 mg PO Q8HR PRN #24 tablet 05/04/21 Unknown Rx Lidocaine Viscous 2% 10 ml PO Q6H PRN #120 ml 05/04/21 Unknown Rx Ondansetron [Zofran Odt] 4 mg PO Q6HR PRN #20 tab.rapdis 05/04/21 Unknown Rx Allergies Allergy/AdvReac Type Severity Reaction Status Date / Time No Known Allergies Allergy Verified 05/04/21 02:31 ED Review of Systems ROS: Stated complaint: DIARRHEA/ SHORTNESS OF BREATH Other details as noted in HPI Constitutional: denies: chills, fever Eyes: denies: eye pain, eye discharge, vision change ENT: throat pain, congestion. denies: ear pain Respiratory: cough, shortness of breath, wheezing Cardiovascular: denies: chest pain, palpitations Endocrine: no symptoms reported Gastrointestinal: nausea, vomiting. denies: abdominal pain, diarrhea Genitourinary: denies: urgency, dysuria, discharge Musculoskeletal: denies: back pain, joint swelling, arthralgia Skin: denies: rash, lesions Neurological: headache. denies: weakness, paresthesias Psychiatric: denies: anxiety, depression Hematological/Lymphatic: denies: easy bleeding, easy bruising ED Past Medical Hx - Past Medical History Hx Hypertension: No Hx Diabetes: No Hx Deep Vein Thrombosis: No Hx Renal Disease: No Hx Sickle Cell Disease: No Hx Seizures: No Hx Psychiatric Treatment: Yes (Anxiety, depression, schizophrenia, bipolar disorder) Hx Asthma: No Hx HIV: No - Social History Smoking Status: Never Smoker Substance Use Type: None - Medications Home Medications: Home Medications Medication Instructions Recorded Confirmed Last Taken Type Acetaminophen/Diphenhydramine 2 each PO QHS 11/14/16 11/14/16 11/13/16 History [Tylenol Pm Ex-Strength Caplet] Vit No.130/Iron/Folic 1 each PO QDAY 11/14/16 11/14/16 11/13/16 History [ Tablet] 1 tab Sulfamethoxazole/Trimethoprim 1 tab PO BID #14 01/05/21 Unknown Rx [Bactrim DS TAB] metroNIDAZOLE [Flagyl] 500 mg PO Q12HR #14 tab 01/05/21 Unknown Rx Amoxicillin [Amoxicillin TAB] 875 mg PO BID #14 tablet 04/27/21 Unknown Rx amLODIPine [Norvasc] 5 mg PO DAILY #30 tab 04/27/21 Unknown Rx Ibuprofen [Motrin] 800 mg PO Q8HR PRN #24 tablet 05/04/21 Unknown Rx Lidocaine Viscous 2% 10 ml PO Q6H PRN #120 ml 05/04/21 Unknown Rx Ondansetron [Zofran Odt] 4 mg PO Q6HR PRN #20 tab.rapdis 05/04/21 Unknown Rx ED Physical Exam - General Limitations: No Limitations General appearance: alert, in no apparent distress - Head Head exam: Present: atraumatic, normocephalic, normal inspection - Eye Eye exam: Present: normal appearance, PERRL, EOMI Pupils: Present: normal accommodation - ENT ENT exam: Present: mucous membranes moist, TM's normal bilaterally, normal external ear exam, other (Grossly congested nasal passages; mild erythematous oropharynx and tonsils) - Neck Neck exam: Present: normal inspection, full ROM - Respiratory Respiratory exam: Present: normal lung sounds bilaterally. Absent: respiratory distress, wheezes, rales, rhonchi, stridor, chest wall tenderness, accessory muscle use - Cardiovascular Cardiovascular Exam: Present: regular rate, normal rhythm, normal heart sounds. Absent: systolic murmur, diastolic murmur, rubs, gallop - GI/Abdominal GI/Abdominal exam: Present: soft, normal bowel sounds. Absent: tenderness, guarding, rebound, hyperactive bowel sounds, hypoactive bowel sounds, organomegaly, mass, bruit - Extremities Exam Extremities exam: Present: normal inspection, full ROM, normal capillary refill. Absent: tenderness - Back Exam Back exam: Present: normal inspection, full ROM. Absent: tenderness, CVA tenderness (R), CVA tenderness (L), muscle spasm, paraspinal tenderness, vertebral tenderness - Neurological Exam Neurological exam: Present: alert, oriented X3, CN II-XII intact, normal gait, reflexes normal - Psychiatric Psychiatric exam: Present: normal affect, normal mood, anxious - Skin Skin exam: Present: warm, dry, intact, normal color. Absent: rash ED Course Vital Signs 05/04/21 02:31 Temperature 98.6 F Pulse Rate 86 Respiratory 18 Rate Blood Pressure 142/86 [Left] O2 Sat by Pulse 98 Oximetry ED Medical Decision Making - Lab Data Result diagrams: 05/04/21 04:01 05/04/21 04:01 - Radiology Data Radiology results: report reviewed, image reviewed [facility] [address] [place] [address] XRay Report Signed Patient: CHRISTOPHER ADKINS MR#: [id number] : 1990 Acct:[id number] Age/Sex: 30 / F ADM Date: 05/04/21 Loc: ED Attending Dr: Ordering Physician: FLORENTINO DENIS Date of Service: 05/04/21 Procedure(s): XR chest routine 2V Accession Number(s): [id number] cc: FLORENTINO DENIS Fluoro Time In Minutes: XR chest routine 2V INDICATION / CLINICAL INFORMATION: COUGH, SORE THROAT. COMPARISON: 04/27/2021 FINDINGS: SUPPORT DEVICES: None. HEART /PULMONARY VASCULATURE: No significant abnormality. LUNGS / PLEURA: No significant pulmonary or pleural abnormality. No pneumothorax. ADDITIONAL FINDINGS: No significant additional findings. IMPRESSION: 1. No acute findings. Signer Name: Gemma Kim MD Signed: 05/04/2021 5:26 AM Workstation Name: [id number] Transcribed By: JS Dictated By: GEMMA KIM MD Electronically Authenticated By: GEMMA KIM MD Signed Date/Time: 05/04/21525 DD/ 5 TD/TT: - Medical Decision Making This is 30-year-old -Niue[place] female with a history of anxiety, depression, schizophrenia, and bipolar disorder presents to the ED with complaint of persistent nasal and sinus congestion, persistent dry cough with wheezing and shortness of breath, severe sore throat with dysphagia and nausea and vomiting for the last 1 week. Patient states that she was initially evaluated by another hospital and discharged home on azithromycin, Medrol Dosepak, pain medications and cough medications but states that her symptoms have worsened, and nausea and vomiting is also worsened and now she is unable to swallow because of worsening sore throat. In the ED, patient is alert and oriented x3 and is not in any distress. Patient is however anxious and is hemodynamically stable. Chest x-ray showed no acute cardiopulmonary abnormalities or pneumonitis. Lab test results were reviewed and are all nonactionable. Patient was treated in the ED for nausea and vomiting, for pain and also given normal saline 1 L IV bolus x1. On reevaluation, patient felt better, sore throat resolved and patient hemodynamically stable. Patient will discharge home and advised to continue taking the previously prescribed medic ations, and additional prescriptions for nausea and vomiting and 2% viscous lidocaine were given to the patient. Patient is advised return to the ED immediately if symptoms get worse. Patient was otherwise advised to follow-up with her primary care physician in 7 to 10 days for reevaluation - Differential Diagnosis Bronchitis; Dehydration; Viral syndrome; Strep pharyngitis; Pneumonia Critical care attestation.: If time is entered above; I have spent that time in minutes in the direct care of this critically ill patient, excluding procedure time. ED Disposition Clinical Impression: Nausea and vomiting in adult patient Acute bronchitis Qualifiers: Bronchitis organism: other organism Qualified Code(s): J20.8 - Acute bronchitis due to other specified organisms Acute pharyngitis Qualifiers: Pharyngitis/tonsillitis etiology: other specified organisms Qualified Code(s): J02.8 - Acute pharyngitis due to other specified organisms Disposition: 01 HOME / SELF CARE / HOMELESS Is pt being admited?: No Does the pt Need Aspirin: No Condition: Stable Instructions: Acute Bronchitis (ED), Upper Respiratory Infection, Adult, [id number], Nausea and Vomiting, Adult, [id number], Acute Bronchitis, Adult, [id number], Pharyngitis, [id number] Additional Instructions: All lab test results were reviewed and are all nonactionable. Chest x-ray showed no acute cardiopulmonary abnormalities or pneumonitis. Therefore take medications that were previously prescribed by another hospital, drink plenty of fluids and follow-up with your primary care physician in 5 to 7 days for reevaluation. Return to the ED immediately if symptoms get worse. Prescriptions: Lidocaine Viscous 2% 10 ml PO Q6H PRN #120 ml PRN Reason: Sore Throat Ibuprofen [Motrin] 800 mg PO Q8HR PRN #24 tablet PRN Reason: Pain , Severe (7-10) Ondansetron [Zofran Odt] 4 mg PO Q6HR PRN #20 tab.rapdis PRN Reason: Nausea Referrals: [facility] [Provider Group] - 3-5 Days Time of Disposition: 05:46 Print Language: RUSSIAN
== END 2021-05-04 06:08 | disposition home or self-care (01) ==
LOC: ED 02:25
DX: J20.8 Acute bronchitis due to other specified organisms (principal); R11.2 Nausea with vomiting, unspecified; J02.8 Acute pharyngitis due to other specified organisms
CPT/HCPCS: 36415; 71046; 80053; 81025; 85025; 96361; 96374; 96375; 99284; J1100; J1885; J2405; J7030; Q0162